=== PATIENT | female | born 1990 | race Two or more races ===

== ENCOUNTER 2022-02-05 12:38 | Emergency (ER) | payer OTHER ==
[~2022-02-05] VITALS: Ht 165.1 cm; Wt 124.7 kg
--- NOTE | 2022-02-05 12:50 | NUR ---
CHARLA [id number] "[facility]- felt dizzy after Treatment". PATIENT STATES " SYMPTOMS RESOLVING NOW/FEELS BETTER". PLACED COMFORTABLY IN BED. VITALS CHECKED.
[2022-02-05 13:16] LABS: BASOPHILS % (AUTO) 0.9 % (0.0-2.0); EOSINOPHILS % (AUTO) 1.4 % (0.0-6.0); HEMATOCRIT 39 % (33-45); HEMOGLOBIN 12.8 g/dL (11.5-14.8); LYMPHOCYTES # (AUTO) 1.4 K/uL (0.8-4.8); LYMPHOCYTES % (AUTO) 26.2 % (20.0-44.0); MEAN CORPUSCULAR HGB CONC 33 g/dl (31.0-36.0); MEAN CORPUSCULAR VOLUME 84 fL (82-100); MONOCYTES # (AUTO) 0.2 K/uL (0.1-1.30); MONOCYTES % (AUTO) 3.8 % (2.0-12.0); NEUTROPHILS # (AUTO) 3.6 K/uL (1.8-8.9); NEUTROPHILS % (AUTO) 67.7 % (43.0-81.0); PLATELET COUNT (AUTO) 229 K/uL (150-450); RED BLOOD CELL COUNT(AUTO) 4.62 MIL/uL (4.0-5.2); WHITE BLOOD COUNT (AUTO) 5.3 K/uL (4.3-11.0)
[2022-02-05 13:39] LABS: ALANINE AMINOTRANSFERASE 29 U/L (12-78); ALBUMIN 3.3 g/dL (3.4-5.0); ALKALINE PHOSPHATASE 101 U/L (46-116); ASPARTATE AMINOTRANSFERASE 11 U/L (15-37); BILIRUBIN,DIRECT 0.1 mg/dL (0.0-0.2); BILIRUBIN,TOTAL 0.4 mg/dL (0.2-1.0); CALCIUM, SERUM 8.8 mg/dL (8.5-10.1); CARBON DIOXIDE 28 mmol/L (21-32); CHLORIDE 103 mmol/L (98-107); CREATININE 0.8 mg/dL (0.6-1.3); GLUCOSE 130 mg/dL (74-106); POTASSIUM 3.6 mmol/L (3.5-5.1); SODIUM SERUM 135 mmol/L (136-145); TOTAL PROTEIN, SERUM 7.4 g/dL (6.4-8.2); UREA NITROGEN, BLOOD 14 mg/dL (7-18)
[2022-02-05] MEDS ORDERED: MECL-159 PO (13:56)
--- NOTE | 2022-02-05 14:00 | NUR ---
CT HEAD DONE AT RADIOLOGY DEPT
[2022-02-05] MEDS ORDERED: MECLIZINE HCL 12.5 MG TABLET ONE (14:08)
[2022-02-05] MEDS: MECLIZINE HCL 12.5 MG TABLET PO ONE (14:12)
--- NOTE | 2022-02-05 14:13 | NUR ---
CXR DONE AT RADIOLOGY DEPT
--- NOTE | 2022-02-05 14:19 | NUR ---
DR ORTIZ MADE AWARE OF ORTHO BP
[2022-02-05 14:55] VITALS: BP 141/88
--- NOTE | 2022-02-05 15:10 | NUR ---
Patient discharged to home in stable condition. Written and verbal after care instructions given. Patient verbalizes understanding of instruction.
== END 2022-02-05 15:12 | disposition home or self-care (01) ==
LOC: ER 12:40
DX: H81.10 Benign paroxysmal vertigo, unspecified ear (principal)
CPT/HCPCS: 36415; 70450; 71045; 80048; 80076; 82962 ×2; 84484; 85025; 85730; 93005; 99285; J8597